=== PATIENT | female | born 1970 | race Caucasian/White ===

== ENCOUNTER 2018-10-24 02:06 | Emergency (ER) | payer MEDICAID ==
[2018-10-24] MEDS: predniSONE 20 MG TAB PO (02:52)
[2018-10-24] MEDS: FAMOTIDINE 20 MG TAB PO (02:52)
== END 2018-10-24 03:56 | disposition home or self-care (01) ==
LOC: FTE 03:56
DX: R21 Rash and other nonspecific skin eruption (principal); E11.9 Type 2 diabetes mellitus without complications; I10 Essential (primary) hypertension
CPT/HCPCS: 99283; J7512